=== PATIENT | male | born 1955 | race Hispanic/Latino ===

== ENCOUNTER → 2018-01-17 | Outpatient (CLI) | payer OTHER | END | disposition home or self-care (01) | LOC: OIH 11:04 | PROVIDERS: ATTEND Family Medicine | DX: M47.896 Other spondylosis, lumbar region (principal); M54.2 Cervicalgia; M25.78 Osteophyte, vertebrae; M25.551 Pain in right hip; M25.552 Pain in left hip; M53.3 Sacrococcygeal disorders, not elsewhere classified; R20.0 Anesthesia of skin; R29.6 Repeated falls | CPT/HCPCS: 72040; 72100; 72220; 73502 ==

== ENCOUNTER → 2018-02-02 | Outpatient (CLI) | payer OTHER | END | disposition home or self-care (01) | LOC: RAH 12:44 | PROVIDERS: ATTEND Family Medicine | DX: I70.201 Unspecified atherosclerosis of native arteries of extremities, right leg (principal) | CPT/HCPCS: 93926; 93971 ==

== ENCOUNTER → 2018-11-08 | Outpatient (CLI) | payer OTHER | END | disposition home or self-care (01) | LOC: OIH 10:16 | PROVIDERS: ATTEND Family Medicine | DX: M79.661 Pain in right lower leg (principal) | CPT/HCPCS: 73590 ==

== ENCOUNTER → 2019-02-07 | Outpatient (CLI) | payer OTHER | END | disposition home or self-care (01) | LOC: RAH 13:09 | PROVIDERS: ATTEND Family Medicine | DX: N32.89 Other specified disorders of bladder (principal); N40.1 Benign prostatic hyperplasia with lower urinary tract symptoms | CPT/HCPCS: 76770 ==

== ENCOUNTER 2019-02-23 10:00 | Observation (INO) | payer OTHER ==
[~2019-02-23] VITALS: Ht 172.7 cm; Wt 96.7 kg
[2019-02-27 16:32] LABS: APPEARANCE,URINE Clear (CLEAR); BILIRUBIN,URINE Negative (NEGATIVE); COLOR,URINE Yellow (YELLOW); GLUCOSE, URINE (UA) Negative (NEGATIVE); KETONES,URINE Negative (NEGATIVE); LEUKOCYTE ESTERASE ,URINE Negative (NEGATIVE); NITRATE,URINE Negative (NEGATIVE); OCCULT BLOOD,URINE Negative (NEGATIVE); PH,URINE 6.5 (5.0-8.0); PROTEIN,URINE Negative (NEGATIVE)
[2019-02-27 16:33] VITALS: BP 140/67
[2019-02-27] MEDS ORDERED: METF-444 PO (16:53)
[2019-02-27] MEDS ORDERED: SIMV20TA6 PO (16:53)
[2019-02-27] MEDS ORDERED: LOSA1TAB54 PO (16:53)
[2019-02-27] MEDS ORDERED: TERA5CAP4 PO (16:53)
[2019-02-27] MEDS ORDERED: PANT40TA25 PO (16:53)
[2019-02-27] MEDS ORDERED: MONT10TA24 PO (16:53)
[2019-02-27] MEDS ORDERED: IBUP-2071 PO (16:53)
[2019-02-27] MEDS ORDERED: FLUT1AER IH (16:53)
[2019-02-28] VITALS (24 sets, daily range): BP systolic 114–151; BP diastolic 57–77
[2019-02-28] MEDS: CEFAZOLIN SODIUM 1 GM VIAL IVP ONE ×2 (08:00→13:25)
[2019-02-28] MEDS ORDERED: SODIUM CHLORIDE 0.9% 1000ML 1,000 ML IV ONE (11:21)
[2019-02-28] MEDS ORDERED: CEFAZOLIN SODIUM 1 GM VIAL ONE ×2 (11:21→12:58)
[2019-02-28] MEDS ORDERED: CELECOXIB 200 MG CAP ONE (12:03)
[2019-02-28] MEDS ORDERED: KETOROLAC TROMETHAMINE 15MG/ML ONE (12:03)
[2019-02-28] MEDS ORDERED: METOCLOPRAMIDE 10 MG/2 ML VIAL ONE (12:03)
[2019-02-28] MEDS ORDERED: ACETAMINOPHEN EXTRA STRENGTH 500 MG TABLET ONE (12:03)
[2019-02-28] MEDS ORDERED: OXYCODONE HCL 10 MG TAB.SR.12H PO ONE (12:04)
[2019-02-28] MEDS ORDERED: PROPOFOL 10 MG/ML 20ML VIAL IV ONE (12:12)
[2019-02-28] MEDS ORDERED: FENTANYL CITRATE PF 50 MCG/1 ML 5ML AMP IV ONE (12:12)
[2019-02-28] MEDS ORDERED: SUCCINYLCHOLINE 200MG/10ML SYR ONE (12:12)
[2019-02-28] MEDS ORDERED: LIDOCAINE PF 2% 5ML ABBOJECT ONE (12:12)
[2019-02-28] MEDS ORDERED: ROCURONIUM 10MG/1ML SYR 10 MG/ML ML ONE ×2 (12:12→13:22)
[2019-02-28] MEDS ORDERED: ROPIVACAINE 0.5% 5MG/ML 30ML IJ ONE (12:16)
[2019-02-28] MEDS ORDERED: TRANEXAMIC ACID 1000MG/10ML IV ONE ×2 (12:58→15:56)
[2019-02-28] MEDS ORDERED: GLYCOPYRROLATE 1 MG/5 ML SYRINGE ONE (13:30)
[2019-02-28] MEDS ORDERED: EPHEDRINE SULFATE 50 MG/ML AMPULE ONE (13:44)
[2019-02-28] MEDS ORDERED: ONDANSETRON HCL 4 MG/2 ML VIAL ONE (14:33)
[2019-02-28] MEDS ORDERED: DEXAMETHASONE SOD PHOSPHATE 4 MG/ML 1ML VIAL ONE (14:33)
[2019-02-28] MEDS: SODIUM CHLORIDE 0.9% 1000ML 1,000 ML IV SCH (15:14)
[2019-02-28] MEDS ORDERED: KETOROLAC TROMETHAMINE 15MG/ML IV PRN (15:15)
[2019-02-28] MEDS ORDERED: TRAMADOL HCL 50 MG TABLET PO PRN (15:15)
[2019-02-28] MEDS: ACETAMINOPHEN EXTRA STRENGTH 500 MG TABLET PO SCH ×2 (15:15→22:21)
[2019-02-28] MEDS ORDERED: LIDOCAINE HCL-MPF 1% 2ML VIAL IVP PRN (15:15)
[2019-02-28] MEDS ORDERED: FERROUS FUMARATE 324 MG TABLET PO PRN (15:15)
[2019-02-28] MEDS ORDERED: POTASSIUM CHLORIDE 20 MEQ ERTAB PO PRN (15:15)
[2019-02-28] MEDS ORDERED: CALCIUM CARBONATE 500 MG TABLET PO PRN (15:15)
[2019-02-28] MEDS ORDERED: POTASSIUM CHLORIDE 10% ELIXIR 20 MEQ/15 ML UDCUP PO PRN (15:15)
[2019-02-28] MEDS ORDERED: ONDANSETRON HCL 4 MG/2 ML VIAL IVP PRN (15:15)
[2019-02-28] MEDS ORDERED: OXYCODONE HCL 5 MG TAB PO PRN (15:15)
[2019-02-28] MEDS ORDERED: POTASSIUM CHLORIDE 20MEQ/100ML 100 ML IV PRN (15:15)
[2019-02-28] MEDS ORDERED: DiphenhydrAMINE HCL 50 MG/ML VIAL IVP PRN (15:15)
[2019-02-28] MEDS ORDERED: TEMAZEPAM 15 MG CAPSULE PO PRN (15:15)
[2019-02-28] MEDS ORDERED: NEOSTIGMINE 5MG/5ML SYR IV ONE (15:36)
[2019-02-28] MEDS ORDERED: MEPERIDINE-PF 25 MG/ML SYG ONE (16:19)
[2019-02-28] MEDS: INSULIN HUMULIN R 100 UNIT/ML 3ML SQ SCH ×2 (16:30→20:33)
--- NOTE | 2019-02-28 17:00 | NUR ---
DCP CM met with pt and spouse discussed dc plans. Pt is independent prior to surgery, lives at home with spouse. Denies any equipments/services. Pt feels safe to go back home, spouse able to assist with transportation and needs as necessary. Pt agreeable for short term rehab placement, BIJAL signed for [facility]. Faxed order, clinicals, and pasrr. Confirmation received. DC plan to [facility]. CM to cont to follow up. Addendum: 03/01/19 at 1122 by REDD WILLOUGHBY LVN CM Amended: Links added.
--- NOTE | 2019-02-28 20:00 | NUR ---
MD CALL PATIENT RESTING IN BED DRESSING TO RIGHT KNEE DRY AND INTACT, BUT PATIENT COMPLAINS OF NOT BEING ABLE TO HEAR CORRECTLY. DR MUNSON MADE AWARE NEW ORDERS GIVEN AND CARRIED OUT.
[2019-02-28] MEDS: ASPIRIN 325 MG TABLET PO SCH (20:03)
[2019-02-28] MEDS: PREGABALIN 25 MG CAP PO SCH (20:03)
[2019-02-28] MEDS: CEFAZOLIN SODIUM 1 GM VIAL IVP SCH (20:03)
[2019-02-28] MEDS: CELECOXIB 200 MG CAP PO SCH (20:03)
[2019-02-28] MEDS: OXYCODONE HCL 5 MG TAB PO PRN (20:12)
[2019-02-28] MEDS: MONTELUKAST SODIUM 10 MG TAB PO SCH (20:50)
[2019-02-28] MEDS: TERAZOSIN HCL 5 MG CAPSULE PO SCH (20:50)
[2019-02-28] MEDS: SIMVASTATIN 20 MG TABLET PO SCH (20:50)
[2019-03-01] MEDS: OXYCODONE HCL 5 MG TAB PO PRN ×3 (01:15→19:18)
[2019-03-01] MEDS: SODIUM CHLORIDE 0.9% 1000ML 1,000 ML IV SCH ×2 (01:15→11:14)
[2019-03-01] MEDS: CEFAZOLIN SODIUM 1 GM VIAL IVP SCH (03:24)
[2019-03-01 03:30] VITALS: BP 129/66
[2019-03-01 05:38] LABS: HEMATOCRIT 31.7 % (42-54); MEAN CORPUSCULAR HEMOGLOBIN 29.2 pg (27.0-33.0); MEAN CORPUSCULAR HGB CONC 34.7 g/dL (32.0-36.0); MEAN CORPUSCULAR VOLUME 84.1 fL (79-99); PLATELET COUNT (AUTO) 142 K/uL (130-400); RED BLOOD CELL COUNT(AUTO) 3.77 MIL/uL (4.50-6.20); RED CELL DISTRIBUTION WIDTH 14.2 % (11.0-15.5); WHITE BLOOD COUNT (AUTO) 8.2 K/uL (4.8-10.8)
[2019-03-01 05:42] LABS: CREATININE 0.9 mg/dL (0.5-1.5); POTASSIUM 4.1 mmol/L (3.5-5.1)
[2019-03-01] MEDS: INSULIN HUMULIN R 100 UNIT/ML 3ML SQ SCH ×4 (05:44→20:51)
[2019-03-01 07:41] VITALS: BP 129/63
[2019-03-01] MEDS: POLYETHYLENE GLYCOL 3350 17 GM POWD.PACK PO SCH (08:56)
[2019-03-01] MEDS: METFORMIN HCL 500 MG TAB.SR.24H PO SCH (08:57)
[2019-03-01] MEDS: PANTOPRAZOLE SODIUM 40 MG TABLET.DR PO SCH (08:57)
[2019-03-01] MEDS: PREGABALIN 25 MG CAP PO SCH ×2 (08:57→19:16)
[2019-03-01] MEDS: ASPIRIN 325 MG TABLET PO SCH ×2 (08:57→19:16)
[2019-03-01] MEDS: LOSARTAN/HYDROCHLOROTHIAZIDE 50-12.5MG TABLET PO SCH (08:57)
[2019-03-01] MEDS: ACETAMINOPHEN EXTRA STRENGTH 500 MG TABLET PO SCH ×3 (08:58→23:55)
[2019-03-01] MEDS: CELECOXIB 200 MG CAP PO SCH ×2 (08:58→19:16)
[2019-03-01] MEDS ORDERED: BREO ELLIPTA IH PRN (09:00)
--- NOTE | 2019-03-01 11:23 | NUR ---
OLIVIA Note: [facility] pending ins auth Spoke to Kenisah w/[facility], came to see pt, forwarded clinicals to insurance this morning. Pt pending ins auth at this time. Primary nurse aware. CM to cont to follow up. Addendum: 03/01/19 at 1612 by REDD WILLOUGHBY LVN CM CM Note: change dcp to [facility], pending ins auth CM spoke to pt and [facility], requested to forwared referral to [facility] instead. Aware [facility] and [facility] are sister company, but preferred facility w/[facility]. OLIVIA spoke to Kenisha aware of fam and pt request, will ask auth for [facility] facility instead of [facility] aware. CM to cont to follow up.
[2019-03-01 11:27] VITALS: BP 116/58
[2019-03-01 15:57] VITALS: BP 109/65
--- NOTE | 2019-03-01 16:08 | NUR ---
CM Note: [facility] pending ins auth Spoke to Kenisha w/[facility], pt still pending ins auth at this time. Primary nurse aware. CM to cont to follow up.
[2019-03-01] MEDS ORDERED: TAMSULOSIN HCL 0.4 MG CAP.ER.24H ONE (19:12)
[2019-03-01] MEDS: SIMVASTATIN 20 MG TABLET PO SCH (19:16)
[2019-03-01] MEDS: MONTELUKAST SODIUM 10 MG TAB PO SCH (19:16)
[2019-03-01] MEDS: TERAZOSIN HCL 5 MG CAPSULE PO SCH (19:16)
[2019-03-01 19:25] VITALS: BP 134/60
[2019-03-01] MEDS ORDERED: TAMSULOSIN HCL 0.4 MG CAP.ER.24H PO SCH (21:00)
[2019-03-01] MEDS ORDERED: METOCLOPRAMIDE 10 MG/2 ML VIAL IV PRN (21:15)
[2019-03-01] MEDS ORDERED: PROMETHAZINE HCL 25 MG/ML 1ML AMPULE IM PRN (21:15)
[2019-03-01] MEDS ORDERED: HYDROMORPHONE PCA 10 MG/50 ML 50 ML IV PRN (21:15)
[2019-03-01] MEDS ORDERED: NALOXONE HCL 0.4 MG/1 ML ML IVP PRN (21:15)
[2019-03-01] MEDS ORDERED: HYDROMORPHONE PCA 10 MG/50 ML 50 ML IV ONE (21:24)
[2019-03-01 23:35] VITALS: BP 121/52
[2019-03-02] MEDS: OXYCODONE HCL 5 MG TAB PO PRN (01:13)
[2019-03-02 03:50] VITALS: BP 125/66
[2019-03-02] MEDS: INSULIN HUMULIN R 100 UNIT/ML 3ML SQ SCH ×3 (06:16→16:30)
[2019-03-02 07:59] VITALS: BP 118/61
[2019-03-02] MEDS: ACETAMINOPHEN EXTRA STRENGTH 500 MG TABLET PO SCH ×2 (08:18→16:47)
[2019-03-02] MEDS: PANTOPRAZOLE SODIUM 40 MG TABLET.DR PO SCH (08:19)
[2019-03-02] MEDS: POLYETHYLENE GLYCOL 3350 17 GM POWD.PACK PO SCH (08:19)
[2019-03-02] MEDS: PREGABALIN 25 MG CAP PO SCH (08:19)
[2019-03-02] MEDS: CELECOXIB 200 MG CAP PO SCH (08:19)
[2019-03-02] MEDS: LOSARTAN/HYDROCHLOROTHIAZIDE 50-12.5MG TABLET PO SCH (08:19)
[2019-03-02] MEDS: ASPIRIN 325 MG TABLET PO SCH (08:19)
[2019-03-02] MEDS: METFORMIN HCL 500 MG TAB.SR.24H PO SCH (08:19)
[2019-03-02 10:52] VITALS: BP 108/51
--- NOTE | 2019-03-02 11:21 | NUR ---
CM Note: [facility] pending ins auth Spoke to Kenisha w/[facility], updated clinicals received and forwarded to insurance this morning. Pt currently pending ins auth at this time. Primary nurse aware. CM to cont to follow up.
--- NOTE | 2019-03-02 13:09 | NUR ---
CM Note: [facility] ins auth Spoke to Kenisha w/[facility], pt has ins auth, pt safe to dc via [facility] transport van. Primary nurse aware. CM to cont to follow up.
[2019-03-02 15:36] VITALS: BP 97/56
[2019-03-02] MEDS ORDERED: HYDR-4457 PO (17:52)
[2019-03-02] MEDS ORDERED: ASPI-1012 PO (17:52)
--- NOTE | 2019-03-02 19:58 | NUR ---
Discharge teaching completed in the room with pt and family at side. Emphasis on Dr. Watson' orders for activity/therapy, incision care, s/s to monitor for, and when to seek emergency care / dial 911. Pt has follow up appts set with Dr. Watson on 03/[address] oMdi on 03/12. Written rx for asa and norco placed in discharge packet. Discussed purpose, route, frequency, and duration of treatment, as well as side effects and adverse effects. Dressing change to rt knee completed at 1700. Incision well approximated with surgical glue. No discoloration or drainage noted. Painted with betadine and dressed with sterile 4x4 and medipore tape as ordered by MD. Secured with erlin wrap. PIV removed, tip intact. Dressed with sterile 2x2 and band aid after hemostasis. Report called to [facility] nurse "Omid" by Radha Stevenson RN. [facility] to arrange for EMS filler picker as their shuttle truck driver is not currently available.
--- NOTE | 2019-03-02 20:15 | NUR ---
DISCHARGE PATIENT DISCHARGED TO [facility] VIA EMS TRANSPORT DUE TO [facility] TRANSPORT NOT AVAILABLE. REPORT GIVEN TO JENNIFER DIMAS. ALL INSTRUCTIONS AND BELONGINGS AT SIDE.
[2019-03-03] MEDS ORDERED: BISACODYL 10 MG SUPP.RECT RC PRN (15:15)
== END 2019-03-02 20:20 ==
LOC: EDSTATUS 02-27 15:00 → DAHIP 02-28 11:04 → 4AH 02-28 16:39
PROVIDERS: ADMIT Orthopaedic Surgery; ATTEND Orthopaedic Surgery
DX: M17.11 Unilateral primary osteoarthritis, right knee (principal); E11.51 Type 2 diabetes mellitus with diabetic peripheral angiopathy without gangrene; E78.5 Hyperlipidemia, unspecified; I10 Essential (primary) hypertension; N40.1 Benign prostatic hyperplasia with lower urinary tract symptoms; M19.90 Unspecified osteoarthritis, unspecified site; Z87.891 Personal history of nicotine dependence; Z82.3 Family history of stroke; Z90.49 Acquired absence of other specified parts of digestive tract; Z88.8 Allergy status to other drugs, medicaments and biological substances; Z79.899 Other long term (current) drug therapy
CPT/HCPCS: 27447; 36415; 76770; 80048; 81003; 82948 ×10; 85027; 87641; 88304; 88311; 96365; 96375 ×4; 96376; 97039; 97116 ×4; 97161; 97530 ×4; A4600; A4606; A4649 ×6; A4930 ×2; A6219; A6223; C1763; C1776; G0168; G0378 ×51; G8978; G8979; G8980; G8981; G8982; G8983; J0330; J0690 ×4; J1100; J1170 ×2; J1200; J1885 ×2; J2001; J2175; J2405 ×2; J2704; J2710; J2765; J2795; J3010; J3490 ×4; J7030 ×2; 96374

== ENCOUNTER 2019-03-11 00:18 | Emergency (ER) | payer OTHER ==
[~2019-03-11 00:18] MED LIST: ASPI-1012 PO; FLUT1AER IH; HYDR-4457 PO; IBUP-2071 PO; LOSA1TAB54 PO; METF-444 PO; MONT10TA24 PO; PANT40TA25 PO; SIMV20TA6 PO; TERA5CAP4 PO
== END 2019-03-11 02:43 | disposition home or self-care (01) ==
LOC: EDH 00:18
DX: R33.9 Retention of urine, unspecified (principal); R60.0 Localized edema; I10 Essential (primary) hypertension; E11.9 Type 2 diabetes mellitus without complications; Z90.49 Acquired absence of other specified parts of digestive tract; Z98.890 Other specified postprocedural states
CPT/HCPCS: 51702; 93971

== ENCOUNTER → 2019-07-26 | Outpatient (CLI) | payer OTHER ==
[~2019-07-26] MED LIST changes: +SIMV-43 PO; -SIMV20TA6 PO
== END | disposition home or self-care (01) ==
LOC: OIH 11:04
PROVIDERS: ATTEND Family Medicine
DX: M25.571 Pain in right ankle and joints of right foot (principal)
CPT/HCPCS: 73610

== ENCOUNTER 2022-10-02 19:05 | Emergency (ER) | payer OTHER ==
[~2022-10-02] VITALS: Ht 170.2 cm; Wt 103.4 kg
[~2022-10-02 19:05] MED LIST changes: +MONT-39 PO; -MONT10TA24 PO; -PANT40TA25 PO; +PANT40TA54 PO
[2022-10-02 20:47] LABS: BASOPHILS % (AUTO) 0.3 % (0.0-5.0); EOSINOPHILS % (AUTO) 1.3 % (0.0-8.0); HEMATOCRIT 40.8 % (42-54); LYMPHOCYTES % (AUTO) 5.2 % (21.0-51.0); MEAN CORPUSCULAR HEMOGLOBIN 27.9 pg (27.0-33.0); MEAN CORPUSCULAR HGB CONC 33.1 g/dL (32.0-36.0); MEAN CORPUSCULAR VOLUME 84.3 fL (79-99); MONOCYTES % (AUTO) 4.8 % (3.0-13.0); PLATELET COUNT (AUTO) 152 K/uL (130-400); RED BLOOD CELL COUNT(AUTO) 4.84 MIL/uL (4.50-6.20); WHITE BLOOD COUNT (AUTO) 7.5 K/uL (4.8-10.8)
[2022-10-02 20:51] LABS: APPEARANCE,URINE CLEAR (CLEAR); BILIRUBIN,URINE NEGATIVE (NEGATIVE); COLOR,URINE YELLOW (YELLOW); GLUCOSE, URINE (UA) TRACE mg/dL (NEGATIVE); KETONES,URINE NEGATIVE (NEGATIVE); LEUKOCYTE ESTERASE ,URINE NEGATIVE Leu/uL (NEGATIVE); NITRATE,URINE NEGATIVE (NEGATIVE); OCCULT BLOOD,URINE NEGATIVE (NEGATIVE); PH,URINE 6.5 (5.0-8.0); PROTEIN,URINE NEGATIVE (NEGATIVE); UROBILINOGEN,URINE 0.2 mg/dL (0.2-1.0)
[2022-10-02 20:55] LABS: BACTERIA,URINE RARE /HPF (None Seen); MUCUS,URINE RARE LPF (None Seen); SQUAMOUS EPITHELIAL CELL,UR RARE /HPF (0-2)
[2022-10-02 20:57] LABS: POTASSIUM 3.8 mmol/L (3.5-5.1)
[2022-10-02 21:04] LABS: ALBUMIN 3.5 g/dL (3.5-5.0); TOTAL PROTEIN, SERUM 7.1 g/dL (6.0-8.3)
[2022-10-02 22:34] VITALS: BP 140/63
[2022-10-02] MEDS ORDERED: OMEP40CA21 PO (23:18)
[2022-10-02] MEDS ORDERED: ONDA-104 PO (23:18)
== END 2022-10-02 23:32 | disposition home or self-care (01) ==
LOC: EDH 19:05
DX: R10.13 Epigastric pain (principal); E11.9 Type 2 diabetes mellitus without complications; E78.00 Pure hypercholesterolemia, unspecified; I10 Essential (primary) hypertension; Z79.1 Long term (current) use of non-steroidal anti-inflammatories (NSAID); Z79.51 Long term (current) use of inhaled steroids; Z79.82 Long term (current) use of aspirin; Z79.84 Long term (current) use of oral hypoglycemic drugs; Z79.899 Other long term (current) drug therapy; Z88.5 Allergy status to narcotic agent
CPT/HCPCS: 36415; 71045; 80053; 81001; 82150; 83690; 83880; 84484; 85025; 85378; 93005

== ENCOUNTER → 2024-02-03 | Outpatient (CLI) | payer OTHER ==
[~2024-02-03] MED LIST changes: +OMEP40CA21 PO; +ONDA-104 PO
== END | disposition home or self-care (01) ==
LOC: RAH 13:55
PROVIDERS: ATTEND Urology
DX: K57.30 Diverticulosis of large intestine without perforation or abscess without bleeding (principal); N32.89 Other specified disorders of bladder; R33.8 Other retention of urine; I70.0 Atherosclerosis of aorta; M47.815 Spondylosis without myelopathy or radiculopathy, thoracolumbar region; N40.0 Benign prostatic hyperplasia without lower urinary tract symptoms; Z90.49 Acquired absence of other specified parts of digestive tract
CPT/HCPCS: 74176